=== PATIENT | female | born 1990 | race Caucasian/White ===

== ENCOUNTER → 2017-08-25 17:16 | Outpatient (CLI) | payer MEDICAID | END | disposition home or self-care (01) | LOC: D.LDO 17:16 | DX: O48.0 Post-term pregnancy (principal); Z3A.40 40 weeks gestation of pregnancy ==

== ENCOUNTER → 2017-08-29 12:20 | Outpatient (CLI) | payer MEDICAID ==
[~2017-08-29 12:20] MED LIST: FERROUS SULFAT325 MG PO; IBUPROFEN600 MG PO; PERCOCET 5-3251 TAB PO; PRENATAL COMPLE1 TAB PO
[2017-08-30 22:50] VITALS: BMI 36.7
== END | disposition home or self-care (01) ==
LOC: D.LDO 12:20
DX: O48.0 Post-term pregnancy (principal); Z3A.40 40 weeks gestation of pregnancy

== ENCOUNTER → 2017-08-30 11:40 | Outpatient (CLI) | payer MEDICAID ==
[2017-08-30 22:50] VITALS: BMI 36.7
== END | disposition home or self-care (01) ==
LOC: D.LDO 11:40
DX: O26.893 Other specified pregnancy related conditions, third trimester (principal); Z3A.40 40 weeks gestation of pregnancy; R10.9 Unspecified abdominal pain

== ENCOUNTER 2017-08-30 20:06 | Inpatient (IN) | payer MEDICAID ==
[2017-08-30 21:51] LABS: HEMATOCRIT 38.3 % (36.0-48.0); HEMOGLOBIN 12.7 g/dL (12-16); MCH 28.7 pg (26.0-34.0); MCHC 33.2 g/dL (31.0-37.0); MCV 86.7 fL (80.0-100.0); MEAN PLATELET VOLUME 11.6 fL (7.4-10.4); RBC 4.42 10x6/uL (4.00-5.40); RDW 21.5 % (11.5-14.5); WBC 10.9 10x3/uL (4.8-10.8)
[2017-08-30] MEDS ORDERED: PRENATAL COMPLE1 TAB PO (22:19)
[2017-08-30] MEDS ORDERED: FERROUS SULFAT325 MG PO (22:20)
[2017-08-30 22:50] VITALS: BP 135/72; BMI 36.7
[2017-08-31] VITALS (9 sets, daily range): BP systolic 122–159; BP diastolic 56–89
--- NOTE | 2017-08-31 06:19 | NUR ---
0559 VIABLE BABY BOY DELIVERED CORD BLOOD AND GASES DONE AND SENT OUT, JACQUELINE.
--- NOTE | 2017-08-31 06:53 | NUR ---
FUNDUS MIDLINE, FIRM AT THE UMBILICUS. MODERATE RUBRA ON [place] PAD
--- NOTE | 2017-08-31 07:04 | NUR ---
RECEIVED PT VIA BED FROM [facility] POST C/S WITH DR KELLER, PT TO ROOM 1218, IV IN RIGHT HAND INTACT WITH NO REDNESS OR EDEMA, NS WITH PITOCIN TO PUMP INFUSING AT 125 ML/HR, FF, ML, 2/U, MOD BLEEDING WITH NO CLOTS, BIKINI LINE INC WITH SMALL DRESSING CDI WITH NO DRAINAGE NOTED, ICE PACK TO ABD, VALENTE CATH INTACT DRAINING DARK YELLOW URINE, EMPTIED 400 MLS FROM VALENTE, SCD'S APPLIED AND WORKING PROPERLY, INFORMED PT THAT I WILL INITIATE THE PARTS COUNTER ASSOCIATE, PT VERBALIZES UNDERSTANDING, VS INITIATED, PT INST ON AND VERBALIZES UNDERSTANDING OF VS, FRESH H20 AND LEMON WAINWRIGHT SERVED
--- NOTE | 2017-08-31 07:44 | NUR ---
MORPHINE OUTREACH ASSOCIATE INITIATED, PT INST ON AND VERBALIZES UNDERSTANDING OF OUTREACH ASSOCIATE, BUTTON TO HAND, PT PUSHES BUTTON AT THIS TIME, PT INST ON, VERBALIZES UNDERSTANDING AND DEMONSTRATED INCENTIVE SPIROMETER, PT ORIENTED TO ROOM, BED IN LOW POSITION, SIDE RAILS X 2, CALL LIGHT IN REACH
--- NOTE | 2017-08-31 08:38 | NUR ---
PT AWAKE, ADM GENTAMYCIN IVPB AND TORADOL SIVP PER MD ORDERS, SEE EMAR, [place] CARE DONE WITH WET WARM WASH CLOTHS, BLUE CHUX AND [place] PAD CHANGED, PT DENIES NEEDS AT THIS TIME, COUSIN AT BEDSIDE
--- NOTE | 2017-08-31 09:00 | NUR ---
SHIFT REPORT TO CRUZITO DANIEL RN
--- NOTE | 2017-08-31 09:30 | NUR ---
PT VISITING WITH FAMILY AND FRIENDS, RATES INC PAIN 12/07, DENIES NEEDS AT THIS TIME, VS CONTINUE
--- NOTE | 2017-08-31 11:07 | OP ---
PATIENT NAME: BENITA ORTEGA MEDICAL RECORD: [id number] :89 LOCATION:[facility]18 ADMISSION DATE:08/30/17 SURGEON: ANSELMO KELLER MD DATE OF OPERATION: 08/31/2017 PREOPERATIVE DIAGNOSES: 1. Active labor at term. 2. Meconium-stained fluid. 3. Chorioamnionitis. 4. Non-reassuring tracing. POSTOPERATIVE DIAGNOSES: 1. Active labor at term, mother delivered at term, mother delivered. 2. Endomyometritis. 3. Non-reassuring tracing, delivered. PROCEDURE: Primary low transverse section. SURGEON: Anselmo Keller MD. PANMAN: Alex. ANESTHESIA: Continuous lumbar epidural. FINDINGS: Viable male infant, Apgars 6 and 9. Cord gas and weight is still pending at the time of this dictation. The foul-smelling amniotic fluid at the time of entry into the uterus. Tubes and ovaries are unremarkable. SPECIMEN REMOVED: Placenta. SPECIMEN DISPOSITION: Pathology. FLUIDS: 1000 cc of lactated Ringer's. URINE OUTPUT: 100 cc of clear urine. ESTIMATED BLOOD LOSS: 700 cc. COMPLICATIONS: None. DRAINS: Negrete to gravity. INDICATIONS: The patient is a 27-year-old G1, para 0, in active labor. The patient had variable decelerations early in the course of her labor, received amniotomy, and IUPC was placed for amnioinfusion. The patient is noted to have tachycardia and development of a fever. The fluid was also noted to be foul-smelling at the time of rupture. The patient was diagnosed with chorio and given antibiotics. During the course of the labor, the developed caput and the cervix began to have noted swelling. Given the prolonged first stage and the indicators, the patient was counseled and section performed. DESCRIPTION OF PROCEDURE: After informed consent is assured, the patient was taken to the operating room where anesthetic is assessed and found to be adequate. The patient was prepped and draped. A Pfannenstiel skin incision was OPERATIVE REPORT [id number] BENITA ORTEGA made, and the abdomen has been entered. The peritoneum was entered sharply, and peritoneal opening is extended to allow visualization of the lower uterine segment. A bladder blade is inserted and low transverse hysterotomy was performed. Infant is delivered onto the abdomen atraumatically, bulb suctioned. The cord is doubly clamped and cut, and immediately passed to the attendant. A cord sample was passed off for blood gas. The placenta was delivered via Crede maneuver. The uterus was exteriorized, cleared of all clot and debris and massaged. There is uterine atony noted and Methergine is immediately given. Pitocin is being infused intravenously. The hysterotomy is now closed with a running locked stitch of chromic. Posterior cul-de-sac is irrigated. Uterus was returned to the abdomen. The hysterotomy was inspected and found to be hemostatic. The peritoneum was reapproximated with chromic stitch and the fascia closed with looped PDS. Subcutaneous tissue is irrigated, bleeding vessels cauterized, and the skin reapproximated with cuate. Sterile dressing is applied. Sponge, lap and needle count is correct times 2. TRANSINT:[id number] Voice Confirmation ID: [id number] DOCUMENT ID: [id number] ANSELMO KELLER MD at 1107 CC: [id number] DICTATION DATE: 08/31/1736 PYROTECHNIC ASSEMBLER: 08/31/17 0723 ADM IN [facility] [address] [id number]
--- NOTE | 2017-08-31 11:24 | NUR ---
I WALKED IN PTS ROOM AND SMELLED A STRONG ODOR OF [place]. I CONTACTED HERIBERTO LOCKHART, HEAD OF SECURITY. HE CAME UP TO SEE PT AND DISCUSSED THIS MATTER WITH PT. SHE STATES THAT SHE GUESSED THAT SOMEONE SMOKED SOMETHING IN HER ROOM AND THAT SHE SMELLED IT ALSO. SOMEONE PREVIOUSLY BEFORE HERIBERTO CAME TO SEE PT SPRAYED PERFUME. SHE SAID THEY DID TO GET THE SMELL OUT BECAUSE SHE SMELLED IT TOO.
--- NOTE | 2017-08-31 11:42 | NUR ---
CLEOCIN ANTIBIOTIC INITIATED.
--- NOTE | 2017-08-31 11:42 | NUR ---
GENTAMYCIN INTITIATED
--- NOTE | 2017-08-31 14:47 | NUR ---
PT IS RESTING. TORADOL GIVEN IV.
--- NOTE | 2017-08-31 15:17 | NUR ---
PTS PADS WERE CHANGED. SHE HAS MODERATE LOCIA RUBRA. PT WAS CLEANED UP.
--- NOTE | 2017-08-31 19:31 | NUR ---
ASSESSMENT PER FLOW SHEET, VS OBTAINED PER WOOD CHONG RN, IV IN RIGHT HAND INTACT WITH NO REDNESS OR EDEMA INFUSING NS WITH PITOCIN AT 125 ML/HR, MORPHINE EMPLOYMENT LEGAL ASSISTANT TO DELIVER 1MG/10MIN PER PT'S DEMAND, PT PUSHES BUTTON AT THIS TIME FOR INC PAIN AND CRAMPING 06/06, PT INFORMED THAT EMPLOYMENT LEGAL ASSISTANT WILL BE DISCONTINUED SHORTLY, PT VERBALIZES UNDERSTANDING, FF, ML, U/U, LITE-MOD BLEEDING NOTED WITH NO CLOTS, PT REPORTS NEEDING TO VOID, PT UP TO BR WITH ASSISTANCE, GAIT STEADY, VOIDED 200 MLS OF BLOOD TINGED URINE BY SELF WITH NO DIFFICULTY, [place] CARE DONE WITH WET WARM WASH CLOTHS, [place] PAD AND PANTIES PLACED, PT BACK TO BED, CLEOCIN HUNG IVPB PER MD ORDERS, SEE EMAR, FRESH ICE PACK PLACED ON ABD, BLUE SKID SOCKS PROVIDED AND PLACED ON WHEN UP TO BR, PT DENIES FURTHER NEEDS, FAMILY TO ROOM
--- NOTE | 2017-08-31 20:30 | NUR ---
PT VISITING WITH FAMILY AND FRIENDS, BEDDING PROVIDED TO FOB, PT DENIES NEEDS AT THIS TIME
--- NOTE | 2017-08-31 21:10 | NUR ---
ADM TORADOL SIVP AND GENTAMYCIN HUNG IVPB PER MD ORDERS, SEE EMAR, PT DENIES NEEDS AT THIS TIME, FAMILY AND FRIENDS AT BEDSIDE
--- NOTE | 2017-08-31 22:25 | NUR ---
PT AWAKE, PT UP TO BR WITH ASSISTANCE, GAIT STEADY, PT VOIDED 100 MLS OF LIGHTLY BLOOD TINGED URINE BY SELF WITH NO DIFFICULTY, PT DID OWN [place] CARE, PT CHANGED [place] PAD, LITE BLEEDING NOTED WITH NO CLOTS, PT BACK TO BED, SCD'S APPLIED AND WORKING PROPERLY, MORPHINE SCREENING UNIT REGISTERED NURSE DISCONTINUED, PT RATES INC PAIN 02/04, ADM PERCOCET PO AND HUNG AMPICILLIN IVPB PER MD ORDERS, SEE EMAR, FRESH ICE PACK TO ABD, PT DENIES FURTHER NEEDS, FOB ASLEEP IN RECLINER
[2017-09-01 00:10] VITALS: BP 116/58
--- NOTE | 2017-09-01 00:10 | NUR ---
PT RESTING WITH EYES CLOSED, AROUSES TO SOFT VERBAL STIMULATION, VS OBTAINED, IV CONVERTED TO SALINE LOCK, SCD'S REMOVED, PT AMB TO NSY WITH ASSISTANCE, GAIT STEADY, FOB ASLEEP IN RECLINER
--- NOTE | 2017-09-01 02:00 | NUR ---
PT RESTING WITH EYES CLOSED, RESP QUIET, NO DISTRESS NOTED, LEFT UNDISTURBED AT THIS TIME, FOB ASLEEP IN RECLINER
[2017-09-01 03:59] VITALS: BP 111/70
--- NOTE | 2017-09-01 03:59 | NUR ---
PT AROUSES TO OPENING OF DOOR, VS OBTIANED, PT REPORTS GETTING UP TO VOID, EMPTIED 300 MLS OF LIGHTLY BLOOD TINGED URINE FROM [place] HAT, SALINE LOCK CONVERTED TO IV, CLEOCIN HUNG IVPB PER MD ORDERS, SEE EMAR, PT C/O INC PAIN, WILL ADM PAIN MED
--- NOTE | 2017-09-01 04:12 | NUR ---
ADM PERCOCET PO PER MD ORDERS, SEE EMAR, PT DENIES FURTHER NEEDS, FOB ASLEEP IN RECLINER
--- NOTE | 2017-09-01 05:15 | NUR ---
PT AROUSES TO OPENING OF DOOR, ADM AMPICILLIN IVPB PER MD ORDERS, SEE EMAR, PT DENIES NEEDS OR PAIN AT THIS TIME, FOB ASLEEP IN RECLINER
--- NOTE | 2017-09-01 06:14 | NUR ---
PT AROUSES TO OPENING OF DOOR, ADM GENTAMYCIN IVPB PER MD ORDERS, SEE EMAR, PT RATES INC PAIN 02/04, DENIES NEEDS AT THIS TIME, ENC PT TO AMB TODAY PER MD ORDERS, PT VERBALIZES UNDERSTANDING, FOB ASLEEP IN RECLINER
--- NOTE | 2017-09-01 07:15 | NUR ---
PT IS RECEIVED LYING IN BED THIS MORNING. SHE REQUESTED PAIN MED. GIVEN FOR PAIN BEING 5-6. GEN- AWAKE AND ALERT. LUNGS- CLEAR. HEART- RRR. ABD- SOFT WITH TENDERNESS. INCISION WITH PRIMAPORE DRESSING CLEAN AND DRY. BS+. EXT- WITH MINIMAL EDEMA. SALINE LOCK INTACT L HAND. BED IS LOW, SIDE RAILS UP X 2 AND CALL LIGHT IN REACH.
[2017-09-01 07:29] LABS: RAPID PLASMA REAGIN Non Reactive (Non Reactive)
[2017-09-01 07:30] VITALS: BP 125/67
--- NOTE | 2017-09-01 08:00 | NUR ---
DR KELLER IS HERE TO SEE PT. PT OFFERS NO COMPLAINTS. PT STATES HER BABY MAY BE TRANSFERRED TO ANOTHER HOSPITAL. DR KELLER DISCUSSED AT LENGTH WITH PT HER DISCHARGE. HE STATES THAT IF THE BABY IS DISCHARGED TODAY THAT HE WILL DC HER HOME WHERE SHE CAN GO BE WITH THEIR BABY.
--- NOTE | 2017-09-01 09:00 | NUR ---
PT UP AND IS IN SHOWER.
--- NOTE | 2017-09-01 09:58 | NUR ---
PT UP AND AMBULATED TO NURSERY TO SEE HER BABY. TOLERATED WELL.
--- NOTE | 2017-09-01 10:58 | NUR ---
IV WAS D'CD R HAND. TIP INTACT.
--- NOTE | 2017-09-01 11:15 | NUR ---
PT CALLS OUT SALES ADMINISTRATION SPECIALIST LIGHT, ASKING ABOUT IV INFUSION OF AMPICILLIN. AMPICILLIN IVPB IS NOT COMPLETED YET, AND CONTINUES TO INFUSE ON PUMP. PT DENIES NEEDS AT THIS TIME.
--- NOTE | 2017-09-01 11:50 | NUR ---
PT TO JEN TO HOLD HER BABY AND THEN AMBULATED IN HALLWAY. TOLERATED WELL.
--- NOTE | 2017-09-01 12:20 | NUR ---
PT C/O PAIN BEING AN 8. PERCOCET 5/325 GIVEN PO.
--- NOTE | 2017-09-01 12:50 | NUR ---
PT IS RESTING IN BED. BED IS LOW, SIDE RAILS UP X 2 AND CALL LIGHT IN REACH. CLEOCIN STARTED.
--- NOTE | 2017-09-01 17:24 | NUR ---
PT UP AND AMBULATED WITH HER SISTER TO SEE HER BABY.
--- NOTE | 2017-09-01 17:41 | NUR ---
PT LYING IN BED. OFFERS NO COMPLAINTS. SHE IS VISITING WITH HER FAMILY.
--- NOTE | 2017-09-01 19:11 | NUR ---
PM ROUNDS MADE, PT LOOKING AT CELL PHONE, INFORMED PT THAT I WILL BE BACK LATER TO DO ASSESSMENT, PT VERBALIZES UNDERSTANDING, DENIES NEEDS OR PAIN, CRUZITO DANIEL RN IN ROOM HANGING 1900 MED PER MD ORDERS, SEE EMAR
[2017-09-01 20:10] VITALS: BP 121/58
--- NOTE | 2017-09-01 20:10 | NUR ---
ASSESSMENT PER FLOW SHEET, VS OBTAINED, IV IN RIGHT HAND INTACT WITH NO REDNESS OR EDEMA INFUSING NS AT 50 ML/HR FOR FLUSH AFTER ANTIBIOTICS, FF, ML, U/U, PT REPORTS LITE BLEEDING WITH NO CLOTS, BIKINI INC WITH KACEY CDI WITH NO DRAINAGE NOTED, [place] PAD PLACED OVER INC FOR COMFORT AND MOISTURE CONTROL, PT REPORTS FLATUS, NO BM AND VOIDING BY SELF WITH NO DIFFICULTY, PT DENIES NEEDS OR PAIN AT THIS TIME
--- NOTE | 2017-09-01 21:10 | NUR ---
PT AWAKE, WATCHING TV, IV CONVERTED TO SALINE LOCK, FLUSHED WELL, PT REPORTS PAIN IS INCREASING, INFORMED PT THAT I WILL ADM PAIN MED WHEN DUE, PT VERBALIZES UNDERSTANDING, DENIES NEEDS AT THIS TIME
--- NOTE | 2017-09-01 22:24 | NUR ---
PT AWAKE, WATCHING TV, ADM PERCOCET X 2 PO PER MD ORDERS, SEE EMAR, PT DENIES FURTHER NEEDS, FOB AT BEDSIDE
--- NOTE | 2017-09-01 22:56 | NUR ---
PT AMB TO NSY, GAIT STEADY, FOB AT SIDE, FOR FEEDING OF BABY
[2017-09-01 23:28] VITALS: BP 130/61
--- NOTE | 2017-09-01 23:28 | NUR ---
PT BACK TO ROOM, VS OBTAINED, RATES INC PAIN 3-4, DENIES NEEDS AT THIS TIME
--- NOTE | 2017-09-02 00:24 | NUR ---
PT RESTING WITH EYES CLOSED, RESP QUIET, NO DISTRESS NOTED, LEFT UNDISTURBED AT THIS TIME, FOB ASLEEP IN RECLINER
--- NOTE | 2017-09-02 02:36 | NUR ---
PT AROUSES TO OPENING OF DOOR, PT DENIES NEEDS AT THIS TIME, FOB ASLEEP IN RECLINER
[2017-09-02 04:34] VITALS: BP 139/70
--- NOTE | 2017-09-02 04:34 | NUR ---
PT AWAKE, VS OBTAINED, ADM PERCOCET PO PER MD ORDERS, SEE EMAR, WITH FRESH H20, PT DENIES FURTHER NEEDS, FOB AT BEDSIDE
--- NOTE | 2017-09-02 06:21 | NUR ---
PT AWAKE, RATES PAIN 2/10, DENIES NEEDS, FOB ASLEEP IN RECLINER
[2017-09-02 07:30] VITALS: BP 145/84
--- NOTE | 2017-09-02 07:30 | NUR ---
PT IS RECEIVED THIS AM LYING IN BED, AWAKE. SHE OFFERS NO COMPLAINTS THIS AM. FOB AT BEDSIDE. GEN- AWAKE AND ALERT. LUNGS- CLEAR. HEART- RRR. ABD- SOFT WITH TENDERNESS NOTED. BS +. IV D'CD FROM R HAND. TIP INTACT. BED IS LOW, SIDE RAILS UP X 2 AND CALL LIGHT IN REACH. INCISION AT BIKINI LINE IS CLEAN AND DRY AND KACEY INTACT.
--- NOTE | 2017-09-02 10:30 | NUR ---
PT AMBULATING IN HALLWAY. PT WENT TO NURSERY TO SEE HER BABY.
--- NOTE | 2017-09-02 14:00 | NUR ---
DR MARQUEZ, FISH HATCHERY MANAGER DISCUSSED BABY AND HIS CARE. HE NEEDS SEVERAL MORE DAYS OF ANTIBIOTICS FOR A TOTAL OF 7 DAYS. PT IS GOING TO BE DISCHARGED AND COME BACK AND FORTH TO SEE HIM.
[2017-09-02] MEDS ORDERED: IBUPROFEN600 MG PO (14:56)
[2017-09-02] MEDS ORDERED: PERCOCET 5-3251 TAB PO (14:57)
--- NOTE | 2017-09-02 15:04 | NUR ---
DISCHARGE INSTRUCTIONS DISCUSSED WITH PT. FU CONNER AND PRESCRIPTIONS GIVEN. PT TAKEN TO VEHICLE BY WHEELCHAIR.
--- NOTE | 2017-10-07 12:11 | DS ---
PATIENT:BENITA ORTEGA :88 MEDICAL RECORD: [id number] DISCHARGE SUMMARY ADMISSION DATE: 08/30/17 DISCHARGE DATE: 09/02/17 DATE OF ADMISSION: 08/30/2017 DATE OF DISCHARGE: 09/02/2017 ADMISSION DIAGNOSIS: at term. DISCHARGE DIAGNOSES: 1. Mother delivered at term via sections. 2. Endomyometritis, resolved. PROCEDURE PERFORMED WHILE HOSPITALIZED: section. ATTENDING: Sydnee Keller MD. HISTORY OF PRESENT ILLNESS: See the H&P in the chart. SUMMARY OF HOSPITALIZATION: The patient was admitted in the course of her labor, developed chorioamnionitis. The patient had nonreassuring tracing and received a section. The patient remained on antibiotics and did well postoperatively. At discharge, she is tolerating regular diet, is afebrile. The patient has been given instructions to return to the clinic for staple removal. ____. DISCHARGE MEDICATIONS: Include Percocet and ibuprofen. PRECAUTIONS: Standard precautions as well as postoperative precautions have been reviewed with the patient at length at the time of discharge. TRANSINT:[id number] Voice Confirmation ID: [id number] DOCUMENT ID: [id number] SYDNEE KELLER MD at 1211 CC: [id number] DICTATION DATE: 09/29/1758 EAR SPECIALIST: 09/29/17 1226 DIS IN 09/02/17 [id number] [place] [address]
== END 2017-09-02 15:25 | disposition home or self-care (01) | DRG 765 ==
LOC: D.LDO 20:06 → D.LD 21:35 → D.WS 21:35 → D.SDCHOLD 08-31 17:04 → D.WS 08-31 17:06
PROVIDERS: ADMIT Obstetrics & Gynecology
PROC: 10D00Z1 Extraction of Products of Conception, Low, Open Approach (ICD-10-PCS; 2017-08-31)
PROC: 3E0E7GC Introduction of Other Therapeutic Substance into Products of Conception, Via Natural or Artificial Opening (ICD-10-PCS; principal; 2017-08-31 05:34)
DX: O77.0 Labor and delivery complicated by meconium in amniotic fluid (principal); O41.1230 Chorioamnionitis, third trimester, not applicable or unspecified; O75.3 Other infection during labor; Z3A.40 40 weeks gestation of pregnancy; Z37.0 Single live birth; O76 Abnormality in fetal heart rate and rhythm complicating labor and delivery